=== PATIENT | female | born 1975 | race Asian ===

== ENCOUNTER → 2020-01-31 15:22 | Outpatient (CLI) | payer OTHER, SELFPAY ==
[2020-01-31 16:38] LABS: COVID19 -Nasal RAPID Negative (Negative)
== END ==
PROVIDERS: Visit Provider Physician Assistant
DX: Z11.59 Encounter for screening for other viral diseases (principal)
CPT/HCPCS: 87635

== ENCOUNTER 2020-02-02 09:48 | Day surgery (SDC) | payer OTHER, SELFPAY ==
--- NOTE | 2020-02-02 | PATH_ITS ---
[facility] Accession Number: [id number] . 01 Material submitted: . PART A: colon - RIGHT COLON BIOPSIES PART B: colon - TRANSVERSE COLON BIOPSIES PART C: colon - TRANSVERSE COLON POLYP PART D: colon - LEFT COLON BIOPSIES PART E: colon - SIGMOID/RECTUM BIOPSIES . 01 Clinical history: . SDC E: ACTIVE INFLAMMATION . 02 Diagnosis: A-B: Right, Transverse Colon, Biopsies: Colonic mucosa with no significant diagnostic abnormality. Negative for active inflammation, granulomas, dysplasia, and malignancy. . C. Transverse Colon, Polyp: Hyperplastic polyp. . D. Left Colon, Biopsies: Colonic mucosa with no significant diagnostic abnormality. Negative for active inflammation, granulomas, dysplasia, and malignancy. . E. Sigmoid Colon/Rectum, Biopsies: Chronic colitis with mild activity; please see comment. Negative for granulomata, dysplasia or malignancy. [facility] 02/07/2020 1222 Local . 02 Comment: E) The findings in the sigmoid colon/rectum biopsies are consistent with the clinical history of ulcerative colitis. . 02 Electronically signed: . Tom Abebe MD, PhD, Pathologist NPI- [id number] . 01 Gross description: . Part A: RIGHT COLON BIOPSIES: Received in formalin are 4 fragment(s) of olivarez, soft tissue measuring 0.3 x 0.2 x 0.1 cm to 0.2 x 0.1 x 0.1 cm submitted entirely in 1 cassette(s) Part B: TRANSVERSE COLON BIOPSIES: Received in formalin are 4 fragment(s) of olivarez, soft tissue measuring 0.3 x 0.2 x 0.1 cm to 0.2 x 0.2 x 0.1 cm submitted entirely in 1 cassette(s) Part C: TRANSVERSE COLON POLYP: Received in formalin is 1 fragment(s) of olivarez, soft tissue measuring 0.4 x 0.3 x 0.1 cm submitted entirely in 1 cassette(s) Part D: LEFT COLON BIOPSIES: Received in formalin are 5 fragment(s) of olivarez, soft tissue measuring 0.3 x 0.3 x 0.1 cm to 0.3 x 0.2 x 0.1 cm submitted entirely in 1 cassette(s) Part E: SIGMOID/RECTUM BIOPSIES : Received in formalin are 4 fragment(s) of olivarez, soft tissue measuring 0.3 x 0.2 x 0.1 cm to 0.2 x 0.2 x 0.2 cm submitted entirely in 1 cassette(s) /QBJ 02/03/2020 0459 Local . 02 Pathologist provided ICD-10: K51.90, K63.5 . 02 CPT . 222408, 390277, 400194, [id number], [id number] Performed at: 01 [facility] [address] [place] [address], [place], [place] [id number] MD Rj Godoy MD Phone: [phone] Performed at: [address] [facility] [address] [place], [place] [id number] MD Cielo Hand MD Phone: [phone]
[2020-02-02 10:17] VITALS: BP 101/68; PULSE 63; RESP 16; TEMP 36.3; O2SAT 100; BMI 30.2
[2020-02-02] MEDS: SODIUM CHLORIDE 0.9% 1,000 ML 70 ML IV (10:29)
--- NOTE | 2020-02-02 10:53 | P.HP_ITS ---
History of Present Illness History of Present Illness Chief complaint: [facility] [place] Patient History Medical History Graves disease Seasonal allergies Ulcerative colitis Comment: Patient is a very pleasant 44-year-old female who presented for colonoscopy. She does have a history of ulcerative colitis diagnosed in 2011. She was last evaluated on December 14, 2019. She has continued to have intermitte nt symptoms of a flare since that time. She also describes worsening joint pain and mouth sores. Family & Social History Social History: household members spouse Tobacco & Substance use: Smoking Status Never smoker alcohol intake current alcohol intake frequency a few times a week Substance Use Type does not use Meds Home Medications and Allergies Home Medications Medication Instructions Recorded Confirmed Type clindamycin phosphate 1 applic TOPICAL BEDTIME PRN 02/02/20 02/02/20 History cyclobenzaprine [Flexeril] 10 mg PO BEDTIME PRN 02/02/20 02/02/20 History eszopiclone [Lunesta] 2 mg PO BEDTIME 02/02/20 02/02/20 History fexofenadine 180 mg PO DAILY 02/02/20 02/02/20 History levothyroxine [Synthroid] 137 mcg PO DAILY 02/02/20 02/02/20 History mesalamine 2.4 g PO DAILY 02/02/20 02/02/20 History montelukast [Singulair] 10 mg PO DAILY 02/02/20 02/02/20 History tretinoin [Retin-A] 1 applic TOPICAL BEDTIME 02/02/20 02/02/20 History Review of Systems Review of Systems ROS: Yes All systems reviewed with the patient and are negative except as otherwise documented Exam Vital Signs (past 8 hours): - 02/02/20 10:17 Temperature 97.3 F L Pulse Rate 63 Respiratory Rate 16 Blood Pressure 101/68 Pulse Oximetry 100 Oxygen Delivery Method Room Air Const General: cooperative, healthy appearing, comfortable, well developed and well groomed Nutritional Appearance: average body habitus Orientation: alert, awake and oriented x3 HENMT Head: normocephalic and atraumatic Resp Effort & Inspection: normal respiratory effort and able to speak in complete sentences Auscultation: clear to auscultation bilaterally Cardio Rate: regular rate Rhythm: regular rhythm Heart Sounds: S1 normal and S2 normal GI Palpation: soft and No tender Auscultation: normal bowel sounds Extrem Right lower extremity: no edema Left lower extremity: no edema Assessment & Plan Assessment & Plan narrative: 1. Ulcerative colitis Colonoscopy today, further recommendations to follow
[2020-02-02] MEDS: MIDAZOLAM 5 MG/5 ML VIAL IV (10:59)
[2020-02-02] MEDS: fentaNYL 250 MCG/5 ML INJ IV (11:00)
--- NOTE | 2020-02-02 11:20 | PM.OP.ENDO ---
Operative Date/Time/Diagnoses Date of procedure: 02/02/20 Time of procedure: 10:59 Procedure Notes Procedure in detail: Surgeon: Tanja Cano DO Procedure: Colonoscopy with with biopsy Preoperative diagnosis: 1. Ulcerative colitis Postoperative diagnosis: 1. Inflammation with ulcer colitis from the rectum to the mid sigmoid colon, biopsied 2. Normal-appearing colon mucosa from the proximal colon to the cecum 3. Normal-appearing terminal ileum Medications: Conscious sedation using 4 mg IV of Midazolam and 100 mcg IV of Fentanyl Preanesthesia Assessment An H and P was performed/updated and the Px?s ASA class is 1. The procedure was discussed in detail with the patient. The potential risks and complications including infection, bleeding, missed lesions, perforation, need for surgery in case of perforation, prolonged hospital stay, and were explained. A brief question and answer period was allotted and once all questions were answered, informed consent was obtained. The patient was brought back to the procedure room and placed on standard monitoring. The patient?s vital signs were monitored continuously throughout the entire procedure. Prior to starting, a timeout was performed to confirm the patient?s identity, allergies, medications, and procedure. Procedure in detail The patient was placed in left lateral decubitus position and once adequate sedation was obtained a NE[place] was performed. The digital rectal examination did not reveal any palpable lesions. The tip of the colonoscope was placed in the anal canal and advanced without difficulty all the way to the cecum which was identified by the appendiceal orifice and the ileocecal valve. Careful examination of all upton of the colon was performed with irrigation of any residual stool. Inflammation consistent with Tatum 1-2. Colitis from the rectum to the mid sigmoid colon. This was biopsied. Normal appearing colonic mucosa from the mid sigmoid colon to the cecum, biopsied to rule out dysplasia Terminal ileal intubation revealed normal mucosa Retroflexion of the rectum was not performed due to the significant friable mucosa in the rectum and contact bleeding. The patient tolerated the procedure well and will be brought back to the recovery area to be discharged once criteria are met. The prep was judged to be good/excellent and adequate to identify polyps less than 5 mm. The withdrawal time was 11min. The total physician intraservice time was 20min. Complications There were no complications and estimated blood loss was minimal. Recommendations: Resume previous diet Continue outPx medications Follow up pathology results Repeat colonoscopy in 1-2 years for surveillance Office follow up to be scheduled An emergency contact number was given to the patient for any complications related to the procedure
[2020-02-02 11:23] VITALS: BP 100/65; PULSE 60; RESP 12; TEMP 36.2; O2SAT 99
[2020-02-02 11:27] VITALS: BP 96/62; PULSE 58; RESP 16; O2SAT 100
[2020-02-02 11:32] VITALS: BP 97/60; PULSE 83; RESP 18; O2SAT 100
[2020-02-02 11:37] VITALS: BP 106/68; PULSE 63; RESP 16; O2SAT 99
[2020-02-02 11:54] VITALS: BP 106/73; PULSE 62; RESP 16; TEMP 36.8; O2SAT 100
--- NOTE | 2020-02-02 12:10 | SUR.PHASEII ---
pt requested copy of her pics, made copies for pt and she was able to take them home. D/c instructions discussed with pt. left in w/c with RN escort to car with her .
== END 2020-02-02 12:00 | disposition home or self-care (01) ==
PROVIDERS: Referring Provider Student in an Organized Health Care Education/Training Program; Visit Provider Student in an Organized Health Care Education/Training Program
PROC: 0DJD8ZZ Inspection of Lower Intestinal Tract, Via Natural or Artificial Opening Endoscopic (ICD-10-PCS; CPT 45378; principal; 2020-02-02 11:00)
DX: K51.90 Ulcerative colitis, unspecified, without complications (principal); E05.00 Thyrotoxicosis with diffuse goiter without thyrotoxic crisis or storm; K63.5 Polyp of colon
CPT/HCPCS: 45380; J2250; J3010